=== PATIENT | male | born 1955 | race Caucasian/White ===

== ENCOUNTER 2017-09-28 10:45 | Inpatient (IN) | payer OTHER ==
[~2017-09-28] VITALS: Ht 175.3 cm; Wt 909.5 kg
[2017-09-28] MEDS ORDERED: ACETAMINOPHEN 325 MG TAB PO PRN (11:30)
[2017-09-28] MEDS ORDERED: VANCOMYCIN 1GM/NS 250 ML 250 ML IV SCH (11:30)
[2017-09-28 15:54] LABS: BASOPHILS # (AUTO) 0.1 (0.0-0.1); BASOPHILS % 0.8 % (0.0-1.0); EOSINOPHILS # (AUTO) 0.2 (0.0-0.4); EOSINOPHILS % 1.1 % (0.0-6.0); HEMATOCRIT 48.6 % (38.2-49.6); HEMOGLOBIN 17.2 g/dL (14.0-18.0); LYMPHOCYTES # (AUTO) 2.6 (1.0-3.2); LYMPHOCYTES % 18.3 % (18.0-39.1); MEAN CORPUSCULAR HEMOGLOBIN 34.4 pg (28-32); MEAN CORPUSCULAR HGB CONC 35.4 g/dL (31-35); MEAN CORPUSCULAR VOLUME 97.2 fL (81-99); MONOCYTES # (AUTO) 1.4 (0.2-0.8); MONOCYTES % 10.1 % (4.4-11.3); NEUTROPHILS # (AUTO) 9.7 (2.1-6.9); NEUTROPHILS % 69.4 % (38.7-80.0); PLATELET COUNT 214 x10e3/uL (140-360); RED CELL DISTRIBUTION WIDTH 11.8 % (11.7-14.4)
[2017-09-28 16:13] LABS: ALANINE AMINOTRANSFERASE 30 IU/L (0-55); ALBUMIN 3.9 g/dL (3.5-5.0); ALBUMIN/GLOBULIN RATIO 1.1 (0.8-2.0); ALKALINE PHOSPHATASE 178 IU/L (40-150); ANION GAP 15.3 mmol/L (8-16); BLOOD UREA NITROGEN 13 mg/dL (7-26); BUN/CREATININE RATIO 13 (6-25); CALCIUM 9.8 mg/dL (8.4-10.2); CARBON DIOXIDE 27 mmol/L (22-29); CHLORIDE 100 mmol/L (98-107); CREATININE, SERUM 0.97 mg/dL (0.72-1.25); EST GLOMERULAR FILTRATION RATE > 60 ML/MIN (60-); GLUCOSE 122 mg/dL (74-118); POTASSIUM 4.3 mmol/L (3.5-5.1); SODIUM 138 mmol/L (136-145)
[2017-09-28] MEDS: ONDANSETRON HCL INJ 2 MG/ML VIAL IV PRN (17:05)
[2017-09-28] MEDS: MORPHINE SULFATE 2 MG/ML SYR IV PRN (17:05)
[2017-09-28] MEDS: SODIUM CHLORIDE 0.9% 1000ML 1,000 ML IV SCH (17:05)
[2017-09-28] MEDS ORDERED: METOPROLOL SUCC50 MG PO (17:27)
[2017-09-29] VITALS (8 sets, daily range): BP systolic 129–160; BP diastolic 73–99
[2017-09-29] MEDS: SODIUM CHLORIDE 0.9% 1000ML 1,000 ML IV SCH ×2 (01:45→15:46)
[2017-09-29] MEDS: MORPHINE SULFATE 2 MG/ML SYR IV PRN ×3 (04:05→21:05)
[2017-09-29] MEDS: ONDANSETRON HCL INJ 2 MG/ML VIAL IV PRN ×2 (04:06→09:31)
[2017-09-29] MEDS: VANCOMYCIN 1GM/NS 250 ML 250 ML IV SCH ×2 (04:56→17:08)
[2017-09-29 07:07] LABS: BASOPHILS # (AUTO) 0.1 (0.0-0.1); BASOPHILS % 0.6 % (0.0-1.0); EOSINOPHILS # (AUTO) 0.3 (0.0-0.4); EOSINOPHILS % 2.9 % (0.0-6.0); HEMATOCRIT 41.4 % (38.2-49.6); HEMOGLOBIN 14.6 g/dL (14.0-18.0); LYMPHOCYTES % 20.4 % (18.0-39.1); MEAN CORPUSCULAR HEMOGLOBIN 34.5 pg (28-32); MEAN CORPUSCULAR HGB CONC 35.3 g/dL (31-35); MEAN CORPUSCULAR VOLUME 97.9 fL (81-99); MONOCYTES # (AUTO) 1.1 (0.2-0.8); MONOCYTES % 10.9 % (4.4-11.3); NEUTROPHILS # (AUTO) 6.3 (2.1-6.9); NEUTROPHILS % 64.9 % (38.7-80.0); PLATELET COUNT 195 x10e3/uL (140-360); RED BLOOD COUNT 4.23 x10e6/uL (4.3-5.7); RED CELL DISTRIBUTION WIDTH 11.6 % (11.7-14.4)
[2017-09-29 07:37] LABS: ANION GAP 10.8 mmol/L (8-16); BLOOD UREA NITROGEN 11 mg/dL (7-26); BUN/CREATININE RATIO 12 (6-25); CALCIUM 8.2 mg/dL (8.4-10.2); CARBON DIOXIDE 25 mmol/L (22-29); CHLORIDE 106 mmol/L (98-107); CREATININE, SERUM 0.89 mg/dL (0.72-1.25); EST GLOMERULAR FILTRATION RATE > 60 ML/MIN (60-); GLUCOSE 142 mg/dL (74-118); POTASSIUM 4.8 mmol/L (3.5-5.1); SODIUM 137 mmol/L (136-145)
[2017-09-29] MEDS ORDERED: METOPROLOL SUCCINATE 50 MG TAB XL PO SCH (09:00)
--- NOTE | 2017-09-29 11:27 | History and Physical ---
A 62-year-old gentleman comes in with right lower extremity swelling and pain and tenderness. HISTORY OF PRESENT ILLNESS: This is Mr. Vernon Prince with a history of hypertension, who was in his usual state of health until about 2 days prior to admission. The patient noted that he had 2 areas on the right thigh posterior part with inflammation spreading gradually at a remarkable pace, and the patient went to the urgent care. Was given a shot of Rocephin apparently, and also started on clindamycin. The patient came to my office yesterday with an acute amount of tenderness and also induration in the area of the thigh with erythema spreading onto the posterior part of the knee and also onto the groin area with lymphangitic spread. The patient was in pain. Admitted the patient for cellulitis. The patient did have complaints of some chills, but no fever. PAST MEDICAL HISTORY: History of hypertension. MEDICATIONS: That he takes at home are metoprolol 50 mg daily ER. The patient also takes no other medications. PAST SURGICAL HISTORY: Includes history of tonsillectomy, history of cataract removal, history of kidney stone removal. SOCIAL HISTORY: Positive for ETOH occasionally. No smoking history either. REVIEW OF SYSTEMS: Negative for chest pain. No shortness of breath. Positive for some chills. No fever. No nausea, vomiting, diarrhea. No constipation or rectal bleeding. No hematochezia. No hematemesis either. PHYSICAL EXAMINATION GENERAL: The patient is alert and oriented times 3. VITAL SIGNS: Temperature is 97.7, pulse 82, respirations 18, pulse ox 96% on room air. HEENT: Normocephalic and atraumatic. Pupils reactive to light and accommodation. CV: S1 and S2 normal. Regular rate and rhythm. ABDOMEN: Nontender and nondistended. EXTREMITIES: Right lower extremity with lymphangitis spreading into the groin area and also into the posterior part of the thigh. Positive for some induration. Extremities with no edema. Positive for 2+ pedal pulses bilaterally. LABORATORY VALUES: Initial white count was 13.95. Chemistry: Sodium of 138, potassium 4.3, glucose 120, AST 17 and ALT 178. IMAGING STUDIES: No DVT appreciated on initial preliminary studies. ASSESSMENT: Cellulitis of the right lower extremity. Blood cultures are pending. Will continue the patient on vancomycin. Peak and trough on 3rd dose. Warm compressions to the area. Further recommendation per clinical course. Pain control with morphine. Will restart his home medication for his hypertension. The patient will be here 1-2 days depending on the progression of the cellulitis, and can be discharged in 1-2 days on oral clindamycin. Job#: [id number]
[2017-09-30] VITALS (8 sets, daily range): BP systolic 140–168; BP diastolic 84–112
[2017-09-30] MEDS: SODIUM CHLORIDE 0.9% 1000ML 1,000 ML IV SCH ×2 (04:53→16:48)
[2017-09-30] MEDS: VANCOMYCIN 1GM/NS 250 ML 250 ML IV SCH ×2 (05:56→16:49)
[2017-09-30] MEDS: MORPHINE SULFATE 2 MG/ML SYR IV PRN ×2 (05:56→09:30)
[2017-09-30] MEDS ORDERED: CLONIDINE HCL 0.1 MG TAB PO PRN (07:15)
[2017-09-30] MEDS: METOPROLOL SUCCINATE 50 MG TAB XL PO SCH (10:06)
[2017-09-30] MEDS: ONDANSETRON HCL INJ 2 MG/ML VIAL IV PRN (17:10)
[2017-10-01] VITALS (7 sets, daily range): BP systolic 117–138; BP diastolic 71–83
[2017-10-01] MEDS: VANCOMYCIN 1GM/NS 250 ML 250 ML IV SCH ×2 (04:53→17:11)
[2017-10-01] MEDS: SODIUM CHLORIDE 0.9% 1000ML 1,000 ML IV SCH ×2 (06:01→19:21)
[2017-10-01 06:15] LABS: BASOPHILS # (AUTO) 0.1 (0.0-0.1); BASOPHILS % 0.9 % (0.0-1.0); EOSINOPHILS # (AUTO) 0.4 (0.0-0.4); HEMATOCRIT 45.7 % (38.2-49.6); LYMPHOCYTES # (AUTO) 2.4 (1.0-3.2); LYMPHOCYTES % 29.6 % (18.0-39.1); MEAN CORPUSCULAR VOLUME 97.2 fL (81-99); MONOCYTES # (AUTO) 0.8 (0.2-0.8); MONOCYTES % 10.5 % (4.4-11.3); NEUTROPHILS # (AUTO) 4.3 (2.1-6.9); NEUTROPHILS % 53.4 % (38.7-80.0); PLATELET COUNT 250 x10e3/uL (140-360); RED CELL DISTRIBUTION WIDTH 11.2 % (11.7-14.4)
[2017-10-01 06:49] LABS: ANION GAP 10.1 mmol/L (8-16); BLOOD UREA NITROGEN 12 mg/dL (7-26); BUN/CREATININE RATIO 13 (6-25); CARBON DIOXIDE 27 mmol/L (22-29); CHLORIDE 105 mmol/L (98-107); EST GLOMERULAR FILTRATION RATE > 60 ML/MIN (60-); GLUCOSE 120 mg/dL (74-118); POTASSIUM 4.1 mmol/L (3.5-5.1); SODIUM 138 mmol/L (136-145)
[2017-10-01] MEDS: TRAMADOL HCL 50 MG TAB PO PRN ×3 (07:45→20:30)
[2017-10-01] MEDS: METOPROLOL SUCCINATE 50 MG TAB XL PO SCH (08:17)
[2017-10-02] MEDS: VANCOMYCIN 1GM/NS 250 ML 250 ML IV SCH (05:24)
[2017-10-02] MEDS: TRAMADOL HCL 50 MG TAB PO PRN (05:25)
[2017-10-02] MEDS ORDERED: TYLENOL # 31 EA PO (07:44)
[2017-10-02] MEDS ORDERED: CLINDAMYCIN HC150 MG PO (07:44)
[2017-10-02 08:12] VITALS: BP 149/96
[2017-10-02 08:27] VITALS: BP 149/96
[2017-10-02] MEDS: METOPROLOL SUCCINATE 50 MG TAB XL PO SCH (08:27)
== END 2017-10-02 09:46 | disposition home or self-care (01) | DRG 603 ==
LOC: ER 10:45 → ERHOLD 15:21 → MED/SURG2 09-29 03:04
PROVIDERS: ADMIT Family Medicine; ATTEND Family Medicine
DX: L03.115 Cellulitis of right lower limb (principal); I10 Essential (primary) hypertension
CPT/HCPCS: 36415; 80048; 80053; 80202; 85025; 87040; 93971; 96361; 99284; J2270; J2405; J3370; J7030